=== PATIENT | female | born 1970 ===

== ENCOUNTER 2022-03-25 07:40 | Emergency (ER) | payer SELFPAY ==
[2022-03-25 08:09] VITALS: BP 131/67
== END 2022-03-25 11:28 | disposition left against medical advice (07) ==
LOC: ED 07:40
DX: M25.562 Pain in left knee (principal); Z53.21 Procedure and treatment not carried out due to patient leaving prior to being seen by health care provider

== ENCOUNTER 2022-03-28 08:00 | Emergency (ER) | payer SELFPAY ==
[2022-03-28 08:41] VITALS: BP 122/64
[2022-03-28] MEDS ORDERED: predniSONE 20 MG TAB PO ONE (11:11)
[2022-03-28] MEDS ORDERED: IBUPROFEN 600 MG TAB PO ONE (11:11)
[2022-03-28] MEDS ORDERED: ACETAMINOPHEN 500 MG TAB PO ONE (11:11)
--- NOTE | 2022-03-28 11:25 | Emergency Department Report ---
ED Extremity Problem HPI - General Chief complaint: Extremity Problem,Nontraumatic Stated complaint: LT KNEE SWOLLEN/PAIN Source: patient Mode of arrival: Ambulatory Limitations: No Limitations - History of Present Illness Initial comments: Patient is a 51-year-old -[place] Citizen female with a history of chronic osteoarthritis who presents to the ED with complaint of acute exacerbation of her chronic osteoarthritis characterized by persistent nontraumatic left knee pain and swelling for the last 1 week, worse in the last 2 days. Patient states that these symptoms have worsened in the last 3 days due to her nature of work which involves her climbing up and down the stairs. Patient denies fall, heavy lifting, nausea and vomiting, fever, chills, chest pain or shortness of breath, hip pain, back pain, numbness and tingling or weakness of lower extremities bilaterally, fever and chills. MD Complaint: extremity pain (Left knee pain), extremity swelling (Left knee), joint swelling (Left knee pain and swelling), joint paint (Left knee) -: week(s) (1) Location: left, lower extremity (Knee pain), knee (Left knee pain and swelling) History of Same: Yes (Chronic osteoarthritis) -: Yes arthralgia (Left knee pain and swelling) Radiation: none Severity scale (0 -10): 8 Quality: aching, sharp Consistency: constant Improves with: nothing Worsens with: weight bearing, walking, exertion, palpation Associated Symptoms: denies other symptoms, arthralgias (Left knee pain). denies: chest pain, shortness of breath, myalgias - Related Data Previous Rx's Medication Instructions Recorded Last Taken Type Naproxen 500 mg PO Q12H PRN #30 tab 03/28/22 Unknown Rx predniSONE [Deltasone] 60 mg PO QDAY #15 tab 03/28/22 Unknown Rx traMADoL [Ultram] 50 mg PO Q6HR PRN #12 tablet 03/28/22 Unknown Rx Allergies Allergy/AdvReac Type Severity Reaction Status Date / Time No Known Allergies Allergy Verified 03/25/22 08:09 ED Review of Systems ROS: Stated complaint: LT KNEE SWOLLEN/PAIN Other details as noted in HPI Constitutional: denies: chills, fever Eyes: denies: eye pain, eye discharge, vision change ENT: denies: ear pain, throat pain Respiratory: denies: cough, shortness of breath, wheezing Cardiovascular: denies: chest pain, palpitations Endocrine: no symptoms reported Gastrointestinal: denies: abdominal pain, nausea, diarrhea Genitourinary: denies: urgency, dysuria, discharge Musculoskeletal: joint swelling (Left knee swelling and pain), arthralgia (Left knee pain and swelling). denies: back pain Skin: denies: rash, lesions Neurological: denies: headache, weakness, paresthesias Psychiatric: denies: anxiety, depression Hematological/Lymphatic: denies: easy bleeding, easy bruising ED Past Medical Hx - Past Medical History Previous Medical History?: Yes Hx Arthritis: Yes - Surgical History Additional Surgical History: hernia repair, partial hysterectomy - Social History Smoking Status: Never Smoker - Medications Home Medications: Home Medications Medication Instructions Recorded Confirmed Last Taken Type Naproxen 500 mg PO Q12H PRN #30 tab 03/28/22 Unknown Rx predniSONE [Deltasone] 60 mg PO QDAY #15 tab 03/28/22 Unknown Rx traMADoL [Ultram] 50 mg PO Q6HR PRN #12 tablet 03/28/22 Unknown Rx ED Physical Exam - General Limitations: No Limitations General appearance: alert, in no apparent distress - Head Head exam: Present: atraumatic, normocephalic, normal inspection - Eye Eye exam: Present: normal appearance, PERRL, EOMI Pupils: Present: normal accommodation - ENT ENT exam: Present: normal exam, normal orophraynx, mucous membranes moist, TM's normal bilaterally, normal external ear exam - Neck Neck exam: Present: normal inspection, full ROM. Absent: tenderness - Respiratory Respiratory exam: Present: normal lung sounds bilaterally. Absent: respiratory distress, wheezes, rales, rhonchi, chest wall tenderness, accessory muscle use - Cardiovascular Cardiovascular Exam: Present: regular rate, normal rhythm, normal heart sounds. Absent: systolic murmur, diastolic murmur, rubs, gallop - GI/Abdominal GI/Abdominal exam: Present: soft, normal bowel sounds. Absent: distended, tenderness, guarding, rebound, hyperactive bowel sounds, organomegaly, mass - Extremities Exam Extremities exam: Present: normal inspection, tenderness (Palpable left knee tenderness with mild swelling and limited range of motion due to pain), normal capillary refill, joint swelling. Absent: full ROM (Limited range of motion due to pain of the left knee), pedal edema, calf tenderness - Back Exam Back exam: Present: normal inspection, full ROM. Absent: tenderness, CVA tenderness (R), CVA tenderness (L), muscle spasm, paraspinal tenderness, vertebral tenderness - Neurological Exam Neurological exam: Present: alert, oriented X3, CN II-XII intact, normal gait, reflexes normal - Psychiatric Psychiatric exam: Present: normal affect, normal mood - Skin Skin exam: Present: warm, dry, intact, normal color. Absent: rash ED Course Vital Signs 03/28/22 08:38 Temperature 97.7 F Pulse Rate 67 Respiratory 16 Rate Blood Pressure 122/64 [Left] O2 Sat by Pulse 100 Oximetry ED Medical Decision Making - Medical Decision Making This is a 51-year-old -[place] Citizen female with a history of chronic osteoarthritis who presents to the ED with complaint of acute exacerbation of her chronic osteoarthritis characterized by persistent nontraumatic left knee pain and swelling for the last 1 week, worse in the last 2 days. Patient states that these symptoms have worsened in the last 3 days due to her nature of work which involves her climbing up and down the stairs. In the ED, patient is alert and oriented x3 and is not in any distress. Patient was treated for pain in the ED. Patient was discharged home on pain medication based on the history and physical exam findings of suspected exacerbation of her chronic left knee osteoarthritis. Patient was advised to return to the ED immediately if symptoms get worse. Patient is otherwise advised to follow-up with her primary care physician in 7 to 10 days for reevaluation. - Differential Diagnosis Osteoarthritis; muscle strain; tendinitis; chronic pain Critical care attestation.: If time is entered above; I have spent that time in minutes in the direct care of this critically ill patient, excluding procedure time. ED Disposition Clinical Impression: Tendinitis of left knee, Chronic osteoarthritis Osteoarthritis of left knee Qualifiers: Osteoarthritis type: primary Qualified Code(s): M17.12 - Unilateral primary osteoarthritis, left knee Disposition: 01 HOME / SELF CARE / HOMELESS Is pt being admited?: No Does the pt Need Aspirin: No Condition: Stable Instructions: Popliteus Tendinitis, Arthritis, [id number], How to Use a Knee Brace Additional Instructions: Your symptoms are likely due to osteoarthritis versus tendinitis of the left knee. Therefore take medications as advised with food, drink plenty of fluids, follow-up with your primary care physician in 5 to 7 days for reevaluation. Return to the ED immediately if symptoms get worse. Prescriptions: predniSONE [Deltasone] 60 mg PO QDAY #15 tab Naproxen 500 mg PO Q12H PRN #30 tab PRN Reason: Pain , Severe (7-10) traMADoL [Ultram] 50 mg PO Q6HR PRN #12 tablet PRN Reason: Pain Referrals: [facility] [Provider Group] - 3-5 Days Time of Disposition: 11:26 Print Language: FILIPINO
== END 2022-03-28 13:28 | disposition home or self-care (01) ==
LOC: ED 08:00
DX: M76.9 Unspecified enthesopathy, lower limb, excluding foot (principal); M17.12 Unilateral primary osteoarthritis, left knee; M19.90 Unspecified osteoarthritis, unspecified site; Z79.899 Other long term (current) drug therapy
CPT/HCPCS: 99282